=== PATIENT | male | born 1990 | race Caucasian/White ===

== ENCOUNTER 2018-11-18 18:04 | Emergency (ER) | payer MEDICAID ==
[~2018-11-18] VITALS: Ht 177.8 cm; Wt 114.0 kg
[2018-11-18] MEDS ORDERED: KETOROLAC 30MG/ML VIAL IM ONE (21:30)
[2018-11-18] MEDS ORDERED: LIDOCAINE HCL/PF 1% 10 MG/ML 5ML VIAL IJ ONE (21:30)
[2018-11-18 22:25] VITALS: BP 140/87
== END 2018-11-18 22:28 | disposition home or self-care (01) ==
LOC: ER 18:04
DX: L02.416 Cutaneous abscess of left lower limb (principal); F12.10 Cannabis abuse, uncomplicated
CPT/HCPCS: 10060; 96372; 99283; J1885; J3490